=== PATIENT | female | born 1945 | race African-American/Black ===

== ENCOUNTER 2021-05-17 15:41 | Outpatient (REF) | payer MEDICARE, MEDICAID, SELFPAY ==
--- NOTE | ~2021-05-17 | XR_ITS ---
EXAMINATION: XR CHEST XR RIBS, BILATERAL CLINICAL INFORMATION: Pleurodynia. COMPARISON: None TECHNIQUE: PA and lateral views of the chest. 3 views of the bilateral ribs. FINDINGS: The cardiomediastinal silhouette is mildly enlarged. Atherosclerotic calcification in the aortic arch. Some linear atelectasis in the lung bases, no consolidation or pneumothorax. No displaced rib fractures. XR/XR chest 2V IMPRESSION: No acute cardiopulmonary process.
--- NOTE | ~2021-05-17 | XR_ITS ---
EXAMINATION: XR CHEST XR RIBS, BILATERAL CLINICAL INFORMATION: Pleurodynia. COMPARISON: None TECHNIQUE: PA and lateral views of the chest. 3 views of the bilateral ribs. FINDINGS: The cardiomediastinal silhouette is mildly enlarged. Atherosclerotic calcification in the aortic arch. Some linear atelectasis in the lung bases, no consolidation or pneumothorax. No displaced rib fractures. XR/XR ribs LT 2V IMPRESSION: No acute cardiopulmonary process.
--- NOTE | ~2021-05-17 | XR_ITS ---
EXAMINATION: XR CHEST XR RIBS, BILATERAL CLINICAL INFORMATION: Pleurodynia. COMPARISON: None TECHNIQUE: PA and lateral views of the chest. 3 views of the bilateral ribs. FINDINGS: The cardiomediastinal silhouette is mildly enlarged. Atherosclerotic calcification in the aortic arch. Some linear atelectasis in the lung bases, no consolidation or pneumothorax. No displaced rib fractures. XR/XR ribs RT 2V IMPRESSION: No acute cardiopulmonary process.
== END 2021-05-17 15:42 | disposition home or self-care (01) ==
LOC: HO.XRAY 15:41
PROVIDERS: PCP Internal Medicine; Visit Provider Internal Medicine
DX: R07.81 Pleurodynia (principal)
CPT/HCPCS: 71046; 71100

== ENCOUNTER 2021-05-24 23:04 | Emergency (ER) | payer MEDICARE, MEDICAID, SELFPAY ==
--- NOTE | ~2021-05-24 | CT_ITS ---
EXAMINATION: CT ABDOMEN AND PELVIS WITH CONTRAST CLINICAL INFORMATION: Diffuse abdominal pain, nausea/vomiting, history of colon cancer COMPARISON: None TECHNIQUE: Multidetector volumetric images were obtained from the superior aspect of the liver through the pubic symphysis following administration 85 mL of Omnipaque 350 intravenous contrast. Sagittal and coronal reformatted images were obtained on the technologist's workstation. Oral contrast: No This CT examination was performed using dose optimization techniques as appropriate, variously including the following: *Automated exposure control *Adjustment of mA and/or kV according to patient size (this includes techniques or standardized protocols for targeted exams where dose is matched to indication/reason for exam; i.e. extremities or head) *Use of iterative reconstruction technique DLP: 724 mGy-cm FINDINGS: LUNG BASES: The visualized lung bases are unremarkable. LIVER, GALLBLADDER, AND BILIARY TREE: The liver is normal in size, shape, and attenuation. No focal hepatic lesion or biliary ductal dilatation is present. The gallbladder is unremarkable with no evidence of radiopaque gallstones, gallbladder wall thickening, or obvious pericholecystic inflammatory changes. PANCREAS: Unremarkable. SPLEEN: Unremarkable. ADRENAL GLANDS: Unremarkable. KIDNEYS AND URETERS: Bilateral nephrograms are symmetric. No hydronephrosis or obstructing calculus identified. BLADDER: Unremarkable. GASTROINTESTINAL TRACT: No evidence of bowel obstruction. There is sigmoid colon diverticulosis without diverticulitis. There is prominent submucosal fat within some segments of the colon, which can be seen as sequelae of prior inflammation. The appendix is unremarkable. No free fluid or free air is seen. ABDOMINAL WALL: No significant hernia is appreciated. LYMPH NODES: Normal. VASCULAR: There are scattered atherosclerotic calcifications. PELVIC VISCERA: Calcified uterine fibroids are noted. OSSEOUS STRUCTURES: Degenerative changes are present most prominently in the lower lumbar spine. CT/CT abdomen pelvis w con IMPRESSION: No acute findings identified in the abdomen/pelvis. Chronic appearing changes as noted above. Fleischner guidelines were followed.
--- NOTE | ~2021-05-24 | XR_ITS ---
EXAMINATION: XR CHEST CLINICAL INFORMATION: Cough COMPARISON: 05/17/2021 TECHNIQUE: Frontal view of the chest was obtained. FINDINGS: Lung volumes are symmetric. No focal consolidation is seen. No evidence of pneumothorax, pleural effusion, or pulmonary edema. Cardiac size is within normal limits. Calcification is present at the aortic arch. No acute osseous findings are seen. XR/XR chest 1V IMPRESSION: No acute cardiopulmonary findings.
[2021-05-24 23:25] VITALS: BP 131/57; PULSE 87; RESP 18; TEMP 36.8; O2SAT 98; BMI 38.2
[2021-05-25 00:32] LABS: MANUAL DIFF FLAG NO
[2021-05-25 00:38] LABS: Basophils Percent Auto 0.1 % (0-2); Eosinophils Percent Auto 0.6 % (0-4); Hemoglobin 12.9 g/dl (12.0-16.0); Imm Gran Abs Auto 0.02 X10*3/uL (0.00-0.03); Imm Gran Pct Auto 0.3 % (0.0-0.4); Lymphocytes Absolute Auto 1.7 X10*3/uL (1.2-4.9); Lymphocytes Percent Auto 25.2 % (20-40); Mean Corpuscular HGB Conc 33.1 g/dl (31.0-35.0); Mean Corpuscular Hemoglobin 31.9 pg (27.0-33.0); Mean Corpuscular Volume 96.5 fL (80.0-98.0); Monocytes Absolute Auto 0.4 X10*3/uL (0.1-1.2); Monocytes Percent Auto 6.6 % (2-11); Neutrophils Absolute Auto 4.5 x10*3/uL (2.0-8.3); Neutrophils Percent Auto 67.2 % (45-73); Platelet Count 384 X10*3/uL (160-400); Red Blood Count 4.04 X10*6/uL (4.20-5.50); Red Cell Distribution Width 12.3 % (11.0-16.0); White Blood Count 6.7 X10*3/uL (4.8-10.8)
[2021-05-25 00:46] LABS: Prothrombin Time 11.7 SEC (9.9-13.0)
[2021-05-25 00:50] LABS: Appearance Urine HAZY; Color Urine STRAW; Glucose Urine UA NEG (NEG); Leukocyte Esterase Urine 2+ (NEG); Nitrite Urine NEG (NEG); Specific Gravity - Urine <= 1.005 (1.005-1.025); UACC Culture Trigger YES; Urine Blood NEG (NEG); Urine Ketones NEG (NEG); Urine Protein NEG (NEG-TRACE)
[2021-05-25 00:58] LABS: Bacteria Urine 1+ /LPF; Mucus Urine 1+ /LPF; RBC Urine 0-2 /HPF (0); Squamous Epithelial Cell Urine TRACE /LPF
[2021-05-25 01:02] LABS: Lactic Acid 1.2 mmol/L (0.5-2.0)
[2021-05-25 01:06] LABS: Strep A Nucleic Acid Negative (Negative)
[2021-05-25 01:11] LABS: COVID-19 Test Negative (Negative); IDNOW Serial# 9DD0AD1C
[2021-05-25 01:21] LABS: Alanine Aminotransferase 10 U/L (0-31); Albumin Level 4.1 g/dL (3.5-5.0); Alkaline Phosphatase 94 U/L (39-117); Anion Gap 12 (12-20); Aspartate Amino Transferase 13 U/L (5-31); Bilirubin Total 0.5 mg/dL (0.0-1.0); Blood Urea Nitrogen 7 mg/dL (9-16); Calcium 9.7 mg/dL (8.4-10.2); Carbon Dioxide 30 mmol/L (22-29); Chloride 101 mmol/L (96-108); Creatinine Clr Calc Pharmacy 52.6; Estimated Glomerular Filt Rate 59; Glucose Random 106 mg/dL (60-115); Potassium 3.9 mmol/L (3.3-5.1); Sodium 139 mmol/L (135-145); Total Protein 7.6 g/dL (6.5-8.0)
--- NOTE | 2021-05-25 01:26 | ED_ITS ---
HPI - General Adult General Chief complaint: Headache Stated complaint: BATES,SORE THROAT Time Seen by Provider: 05/24/21 23:05 Source: patient and interpreter deaf Mode of arrival: EMS History of Present Illness HPI narrative: 75-year-old female with presentation via EMS for dental pain that extends into the jaw and right side of her face in into the ear patient describes at it crosses her face, patient states that she has had nausea but no vomiting and diarrhea. Patient states she has gotten her COVID-19 vaccine. Related Data Previous Rx's Medication Instructions Recorded amoxicillin 875 mg-potassium 1 tab PO Q12H 5 Days #10 tab 05/25/21 clavulanate 125 mg tablet (Augmentin) Allergies Allergy/AdvReac Type Severity Reaction Status Date / Time No Known Allergies Allergy Unverified 01/06/20 16:38 [No Known Allergies*] aspirin AdvReac Unknown Verified 01/06/19 00:00 Review of Systems Verdana 4l Review of Systems: Verdana 4d Pertinent positives and Verdana 4d negatives as stated in HPI 10 point review of systems is otherwise negative. Verdana 4d PMFSH Past Medical History Source: nursing notes reviewed Social History Social History Advance Directives: No Advance Directives Information Provided: Yes Physical Exam Verdana 4l Vital Signs: Verdana 4d Verdana 4d Vital Signs: Verdana 4d Verdana 4Bd Last Vital Signs Verdana 4d Booth Operator New 4d Booth Operator New 4d Temp 98.3 F 05/24/21 23:25 Booth Operator New 4d Pulse 87 05/24/21 23:25 Booth Operator New 4d Resp 18 05/24/21 23:25 BP 131/57 L 05/24/21 23:25 Pulse Ox 98 05/24/21 23:25 BMI result Body Mass Index 38.2 VITAL SIGNS: Reviewed. GENERAL: Well developed, well nourished, in no acute distress. HEAD: Normocephalic/atraumatic EYES: PERRLA, EOMI OROPHARYNX: no oral lesions noted, posterior pharynx clear NECK: Supple, no adenopathy LUNGS: Normal breath sounds. No adventitious sounds or accessory muscle use. SpO2<98> CARDIOVASCULAR: Regular rate and rhythm without noted murmurs, no JVD or lower extremity edema. ABDOMEN: Obese, soft, mild abdominal tenderness, non-distended with bowel sounds. SKIN: Inspection of the skin reveals no rashes NEUROLOGIC: Alert and oriented x 4. Strength and sensation to light touch were grossly intact x 4. Course Course Course Narrative: 75-year-old female with history and clinical presentation suggestive of possible dental pain, UTI, obstruction given prior history of colon CA. Review of all investigations without acute findings other than evidence to suggest dental infection and a UTI. Patient received initial antibiotics as well as analgesics here in the emergency room and was discharged home in stable condition with remaining course. Medical Decision Making Lab Data Result diagrams: 05/25/21 00:05 05/25/21 00:05 Labs: Lab Results 05/25/21 05/25/21 05/25/21 Range/Units 00:05 00:05 00:05 WBC 6.7 (4.8-10.8) X10*3/uL RBC 4.04 L (4.20-5.50) X10*6/uL Hgb 12.9 (12.0-16.0) g/dl Hct 39.0 (37.0-47.0) % MCV 96.5 (80.0-98.0) fL MCH 31.9 (27.0-33.0) pg MCHC 33.1 (31.0-35.0) g/dl RDW 12.3 (11.0-16.0) % Plt Count 384 (160-400) X10*3/uL MPV 9.0 L (9.4-12.3) fL Immature Gran % (Auto) 0.3 (0.0-0.4) % Neut % (Auto) 67.2 (45-73) % Lymph % (Auto) 25.2 (20-40) % Hancock % (Auto) 6.6 (2-11) % Eos % (Auto) 0.6 (0-4) % Baso % (Auto) 0.1 (0-2) % Lymph # (Auto) 1.7 (1.2-4.9) X10*3/uL Hancock # (Auto) 0.4 (0.1-1.2) X10*3/uL Eos # (Auto) 0.0 (0.0-0.4) X10*3/uL Baso # (Auto) 0.0 (0.0-0.2) X10*3/uL Abs Immat Gran (auto) 0.02 (0.00-0.03) X10*3/uL Absolute Neuts (auto) 4.5 (2.0-8.3) x10*3/uL Absolute Nucleated RBC 0.000 (0.0-0.012) X10*3/uL Nucleated RBC % (auto) 0.0 (0.0-0.2) /100WBC PT (9.9-13.0) SEC INR (0.9-1.1) Sodium (135-145) mmol/L Potassium (3.3-5.1) mmol/L Chloride (96-108) mmol/L Carbon Dioxide (22-29) mmol/L Anion Gap (12-20) BUN (9-16) mg/dL Creatinine (0.5-1.4) mg/dL Estim Creat Clear Calc Estimated GFR Random Glucose (60-115) mg/dL Lactic Acid (0.5-2.0) mmol/L Calcium (8.4-10.2) mg/dL Total Bilirubin (0.0-1.0) mg/dL AST (5-31) U/L ALT (0-31) U/L Alkaline Phosphatase (39-117) U/L Total Protein (6.5-8.0) g/dL Albumin (3.5-5.0) g/dL Urine Color Urine Appearance Urine pH (5.0-8.0) Ur Specific Irving (1.005-1.025) Urine Protein (NEG-TRACE) MG/DL Urine Glucose (UA) (NEG) MG/DL Urine Ketones (NEG) MG/DL Urine Blood (NEG) Urine Nitrite (NEG) Ur Leukocyte Esterase (NEG) Urine RBC (0) /HPF Urine WBC (0-4) /HPF Ur Squamous Epith Cells /LPF Urine Bacteria /LPF Urine Mucus /LPF COVID-19 (FAITH) Negative (Negative) COVID-19 Clin Com See Note S. pyogenes GrpA YUE Negative (Negative) 05/25/21 05/25/21 05/25/21 Range/Units 00:05 00:05 00:05 WBC (4.8-10.8) X10*3/uL RBC (4.20-5.50) X10*6/uL Hgb (12.0-16.0) g/dl Hct (37.0-47.0) % MCV (80.0-98.0) fL MCH (27.0-33.0) pg MCHC (31.0-35.0) g/dl RDW (11.0-16.0) % Plt Count (160-400) X10*3/uL MPV (9.4-12.3) fL Immature Gran % (Auto) (0.0-0.4) % Neut % (Auto) (45-73) % Lymph % (Auto) (20-40) % Hancock % (Auto) (2-11) % Eos % (Auto) (0-4) % Baso % (Auto) (0-2) % Lymph # (Auto) (1.2-4.9) X10*3/uL Hancock # (Auto) (0.1-1.2) X10*3/uL Eos # (Auto) (0.0-0.4) X10*3/uL Baso # (Auto) (0.0-0.2) X10*3/uL Abs Immat Gran (auto) (0.00-0.03) X10*3/uL Absolute Neuts (auto) (2.0-8.3) x10*3/uL Absolute Nucleated RBC (0.0-0.012) X10*3/uL Nucleated RBC % (auto) (0.0-0.2) /100WBC PT 11.7 (9.9-13.0) SEC INR 1.0 (0.9-1.1) Sodium 139 (135-145) mmol/L Potassium 3.9 (3.3-5.1) mmol/L Chloride 101 (96-108) mmol/L Carbon Dioxide 30 H (22-29) mmol/L Anion Gap 12 (12-20) BUN 7 L (9-16) mg/dL Creatinine 0.93 (0.5-1.4) mg/dL Estim Creat Clear Calc 52.6 Estimated GFR 59 Random Glucose 106 (60-115) mg/dL Lactic Acid 1.2 (0.5-2.0) mmol/L Calcium 9.7 (8.4-10.2) mg/dL Total Bilirubin 0.5 (0.0-1.0) mg/dL AST 13 (5-31) U/L ALT 10 (0-31) U/L Alkaline Phosphatase 94 (39-117) U/L Total Protein 7.6 (6.5-8.0) g/dL Albumin 4.1 (3.5-5.0) g/dL Urine Color Urine Appearance Urine pH (5.0-8.0) Ur Specific Irving (1.005-1.025) Urine Protein (NEG-TRACE) MG/DL Urine Glucose (UA) (NEG) MG/DL Urine Ketones (NEG) MG/DL Urine Blood (NEG) Urine Nitrite (NEG) Ur Leukocyte Esterase (NEG) Urine RBC (0) /HPF Urine WBC (0-4) /HPF Ur Squamous Epith Cells /LPF Urine Bacteria /LPF Urine Mucus /LPF COVID-19 (FAITH) (Negative) COVID-19 Clin Com S. pyogenes GrpA YUE (Negative) 05/25/21 Range/Units 00:05 WBC (4.8-10.8) X10*3/uL RBC (4.20-5.50) X10*6/uL Hgb (12.0-16.0) g/dl Hct (37.0-47.0) % MCV (80.0-98.0) fL MCH (27.0-33.0) pg MCHC (31.0-35.0) g/dl RDW (11.0-16.0) % Plt Count (160-400) X10*3/uL MPV (9.4-12.3) fL Immature Gran % (Auto) (0.0-0.4) % Neut % (Auto) (45-73) % Lymph % (Auto) (20-40) % Hancock % (Auto) (2-11) % Eos % (Auto) (0-4) % Baso % (Auto) (0-2) % Lymph # (Auto) (1.2-4.9) X10*3/uL Hancock # (Auto) (0.1-1.2) X10*3/uL Eos # (Auto) (0.0-0.4) X10*3/uL Baso # (Auto) (0.0-0.2) X10*3/uL Abs Immat Gran (auto) (0.00-0.03) X10*3/uL Absolute Neuts (auto) (2.0-8.3) x10*3/uL Absolute Nucleated RBC (0.0-0.012) X10*3/uL Nucleated RBC % (auto) (0.0-0.2) /100WBC PT (9.9-13.0) SEC INR (0.9-1.1) Sodium (135-145) mmol/L Potassium (3.3-5.1) mmol/L Chloride (96-108) mmol/L Carbon Dioxide (22-29) mmol/L Anion Gap (12-20) BUN (9-16) mg/dL Creatinine (0.5-1.4) mg/dL Estim Creat Clear Calc Estimated GFR Random Glucose (60-115) mg/dL Lactic Acid (0.5-2.0) mmol/L Calcium (8.4-10.2) mg/dL Total Bilirubin (0.0-1.0) mg/dL AST (5-31) U/L ALT (0-31) U/L Alkaline Phosphatase (39-117) U/L Total Protein (6.5-8.0) g/dL Albumin (3.5-5.0) g/dL Urine Color STRAW Urine Appearance HAZY Urine pH 6.0 (5.0-8.0) Ur Specific Irving <= 1.005 (1.005-1.025) Urine Protein NEG (NEG-TRACE) MG/DL Urine Glucose (UA) NEG (NEG) MG/DL Urine Ketones NEG (NEG) MG/DL Urine Blood NEG (NEG) Urine Nitrite NEG (NEG) Ur Leukocyte Esterase 2+ H (NEG) Urine RBC 0-2 (0) /HPF Urine WBC 10-14 H (0-4) /HPF Ur Squamous Epith Cells TRACE /LPF Urine Bacteria 1+ /LPF Urine Mucus 1+ /LPF COVID-19 (FAITH) (Negative) COVID-19 Clin Com S. pyogenes GrpA YUE (Negative) Discharge Plan Discharge Clinical Impression: Acute UTI, Dental infection Patient Disposition: Home, Self-Care Instructions: Urinary Tract Infection in Women (DC), Toothache (ED) Additional Instructions: 1. Reanudar todos los medicamentos caseros seg?n lo prescrito. 2. Seguimiento con jacobsen proveedor de atenci?n primaria en los pr?ximos 1-2 d?as. Debe hacer un seguimiento con el dentista llamando al consultorio a primera hora de la ma?max. Regrese a la ella de emergencias si los s?ntomas empeoran. Prescriptions: New amoxicillin-pot clavulanate [Augmentin] 875-125 mg tablet 1 tab PO Q12H 5 Days Qty: 10 0RF Print Language: Lao
[2021-05-25] MEDS: Acetaminophen 325 MG TABLET 975 MG PO (01:34)
[2021-05-25] MEDS: cefTRIAXone sodium 1 GM in 0.9 % Sodium Chloride 50 ML IV (01:34)
[2021-05-25 02:00] VITALS: BP 110/78; PULSE 80; RESP 16; O2SAT 97
[2021-05-25] MEDS: iohexoL 350 MG/ML 100 ML INFUS..BTL 85 ML IV (02:16)
== END 2021-05-25 03:23 | disposition home or self-care (01) ==
PROVIDERS: Emergency Provider Student in an Organized Health Care Education/Training Program
DX: N39.0 Urinary tract infection, site not specified (principal); K04.7 Periapical abscess without sinus; K08.89 Other specified disorders of teeth and supporting structures; Z20.822 Contact with and (suspected) exposure to COVID-19
CPT/HCPCS: 36415; 71045; 74177; 80053; 81001; 83605; 85025; 85610; 87040; 87086; 87088; 87186; 87635; 87651; 96365; 99284; J0696; Q9967

== ENCOUNTER 2021-08-13 14:43 | Outpatient (REF) | payer MEDICARE, MEDICAID, SELFPAY ==
--- NOTE | ~2021-08-13 | CT_ITS ---
EXAMINATION: CT SOFT TISSUE NECK WITH CONTRAST CLINICAL INFORMATION: Dysphagia COMPARISON: None TECHNIQUE: Following intravenous administration of 6 mL of Omnipaque 350 contrast, helical imaging was performed in the axial plane with generation of coronal and sagittal reformatted images. Limited study with motion artifacts. This CT examination was performed using dose optimization techniques as appropriate, variously including the following: *Automated exposure control *Adjustment of mA and/or kV according to patient size (this includes techniques or standardized protocols for targeted exams where dose is matched to indication/reason for exam; i.e. extremities or head) *Use of iterative reconstruction technique DLP: 256 mGy-cm FINDINGS: No contour abnormality or pathologic enhancement is seen within the oral cavity, though there are some limitations in evaluation due to motion artifacts. There is a retropharyngeal course of the common carotid arteries and right internal carotid artery distorting the posterior pharyngeal wall. No abnormal enhancement is evident within the pharyngeal mucosal space. The laryngeal structures appear normal. The thyroid gland is homogeneous. There is a small calcification superficially in the right parotid gland. The parotid and submandibular glands otherwise appear normal. No cervical adenopathy is visible. Mild atherosclerotic wall calcifications present at the carotid bifurcations. The imaged mediastinum is normal. The visualized portions of the lungs are clear. There is a mild rightward curvature of the cervical spine with multilevel facet arthropathy. Scattered dental caries noted. The imaged paranasal sinuses and mastoid air cells are well aerated. The TMJs appear normal. The craniocervical junction is normal. The visualized portions of the brain demonstrate no acute abnormality. CT/CT soft tissue neck w con IMPRESSION: Limited study with motion artifacts. No abnormal soft tissue enhancement. No cervical adenopathy or acute process.
[2021-08-13] MEDS: iohexoL 350 MG/ML 100 ML INFUS..BTL 60 ML IV (16:30)
== END 2021-08-13 14:44 | disposition home or self-care (01) ==
LOC: HO.CT 14:43
PROVIDERS: Visit Provider Internal Medicine
DX: R13.10 Dysphagia, unspecified (principal); R22.1 Localized swelling, mass and lump, neck
CPT/HCPCS: 70491; Q9967

== ENCOUNTER → 2021-09-20 13:06 | Outpatient (BNVA) | payer MEDICARE, MEDICAID, SELFPAY | PROVIDERS: Referring Provider Internal Medicine; Visit Provider Physician Assistant | DX: R13.10 Dysphagia, unspecified (principal); K21.9 Gastro-esophageal reflux disease without esophagitis; K44.9 Diaphragmatic hernia without obstruction or gangrene | CPT/HCPCS: 99202 ==

== ENCOUNTER 2021-09-21 09:37 | Outpatient (REF) | payer MEDICARE, MEDICAID, SELFPAY ==
--- NOTE | ~2021-09-21 | FL_ITS ---
EXAMINATION: FL BARIUM SWALLOW CLINICAL INFORMATION: Heartburn and dysphagia with solids. COMPARISON: None TECHNIQUE: Barium swallow examination was performed using fluoroscopic evaluation in addition to multiple fluoroscopic spot views. The patient was imaged both upright and prone. Fluoroscopy time: 1.8 minutes DAP: 5.621 Gycm2 Images: 73 FINDINGS: The patient swallowed thin and thick barium and a 1/2 inch diameter barium tablet without difficulty. No nasopharyngeal reflux or tracheal aspiration identified. There is some mild cricopharyngeal hypertrophy seen without evidence of Zenker's diverticulum. There is normal esophageal motility. No persistent stricture is identified. There is a small hiatal hernia present. A Schatzki's ring is seen. There is mild gastroesophageal reflux which is transient and clears rapidly to the level just below the criss. FL/FL barium swallow IMPRESSION: Small hiatal hernia with transient gastroesophageal reflux to the criss. Mild cricopharyngeal hypertrophy.
== END 2021-09-21 09:38 | disposition home or self-care (01) ==
LOC: HO.XRAY 09:37
PROVIDERS: PCP Internal Medicine; Visit Provider Internal Medicine
DX: R13.10 Dysphagia, unspecified (principal)
CPT/HCPCS: 74220

== ENCOUNTER → 2021-10-09 13:44 | Outpatient (BNVA) | payer MEDICARE, MEDICAID, SELFPAY | PROVIDERS: PCP Internal Medicine; Visit Provider Physician Assistant | DX: R13.10 Dysphagia, unspecified (principal); K21.9 Gastro-esophageal reflux disease without esophagitis | CPT/HCPCS: 99212 ==

== ENCOUNTER → 2023-05-07 12:45 | Outpatient (BNVA) | payer MEDICARE, MEDICAID, SELFPAY | PROVIDERS: PCP Internal Medicine; Visit Provider Physician Assistant ==

== ENCOUNTER 2023-05-14 15:25 | Outpatient (REF) | payer MEDICARE, MEDICAID, SELFPAY ==
--- NOTE | ~2023-05-14 | XR_ITS ---
EXAMINATION: XR KNEE, RIGHT CLINICAL INFORMATION: Right knee pain for 3 weeks COMPARISON: None available. TECHNIQUE: AP, lateral, and both oblique views of the right knee. FINDINGS: No fracture or malalignment. Mild tricompartmental osteoarthritis with possible small joint effusion. No suspicious bone lesion or soft tissue calcification. XR/XR knee RT 3V IMPRESSION: Mild tricompartmental osteoarthritis with possible small joint effusion.
== END 2023-05-14 15:26 | disposition home or self-care (01) ==
LOC: HO.HHCX 15:25
PROVIDERS: Visit Provider Emergency Medicine
DX: M25.561 Pain in right knee (principal)
CPT/HCPCS: 73562

== ENCOUNTER 2023-06-18 10:32 | Outpatient (REF) | payer OTHER, SELFPAY ==
[2023-06-18 11:39] LABS: Alanine Aminotransferase 16 U/L (0-31); Albumin Level 4.2 g/dL (3.5-5.0); Alkaline Phosphatase 83 U/L (39-117); Anion Gap 10 (12-20); Aspartate Amino Transferase 25 U/L (5-31); Bilirubin Direct 0.2 mg/dL (0.0-0.5); Bilirubin Total 0.5 mg/dL (0.0-1.0); Blood Urea Nitrogen 17 mg/dL (9-16); Calcium 11.1 mg/dL (8.4-10.2); Carbon Dioxide 34 mmol/L (22-29); Chloride 100 mmol/L (96-108); Cholesterol 154 mg/dL (<200); Estimated Glomerular Filt Rate > 60; Glucose Random 146 mg/dL (60-115); HDL Cholesterol 64 mg/dL (>40); LDL Cholesterol Calculated 80 mg/dL (<100); Potassium 3.8 mmol/L (3.3-5.1); Sodium 140 mmol/L (135-145); Triglycerides 54 mg/dL (<150)
[2023-06-18 13:19] LABS: Reflex LDLD? No
== END 2023-06-18 10:33 | disposition home or self-care (01) ==
LOC: HO.HHCL 10:32
PROVIDERS: Visit Provider Internal Medicine
DX: I10 Essential (primary) hypertension (principal); R13.10 Dysphagia, unspecified; K21.9 Gastro-esophageal reflux disease without esophagitis; Z86.010 Personal history of colon polyps
CPT/HCPCS: 36415; 80048; 80061; 80076; 99212

== ENCOUNTER 2023-06-18 11:51 | Outpatient (AMB) | payer OTHER, MEDICAID, SELFPAY ==
--- NOTE | 2023-06-18 12:00 | A.OFFVIS_ITS ---
Intake Vital Signs 06/18/23 12:16 Height 5 ft 2 in Weight 191 lb 4 oz BMI 35.0 BP 120/77 Blood Pressure Location Lt brachial Position Sitting Pulse 65 Intake Visit Reasons: Gastroesophageal reflux disease (GERD) Intake Note: Patient is seen in office for follow up following GERD. Patient c/o: continued acied reflux couple hrs after meals, when eating food gets stuck and has to take hot water for food to go down, denies nausea, vomit, diarrhea, constipation Swat Team Member Required: No Accompanied by: Self / Same As Patient Allergies No Known Allergies [No Known Allergies*] Allergy (Verified 10/09/21 13:49) aspirin Adverse Reaction (Unknown, Verified 06/18/23 12:10) Agitated Medication List - Last Reconciled 06/18/23 by Alysa Ye PA-C atorvastatin 40 mg PO BEDTIME cholecalciferol (vitamin D3) 50 mcg PO DAILY hydrochlorothiazide 25 mg PO DAILY mirtazapine 30 mg PO BEDTIME omeprazole 40 mg PO DAILY ramipril 2.5 mg PO DAILY verapamil ER 300 mg PO BEDTIME HPI HPI Comments History of Present Illness Details A 77 y/o female seen 2021- with dysphagia and acid reflux- after Barium swallow- she was to be scheduled for EGD- as well as ENT for PND She is here with her family member- Jailene- says she was never called for appointment- On 12/04/22 @ 09:10 Shari Lieberman Wrote To Missy Marte attempts made with no response from pt. On 11/07/22 @ 09:57 Shari Lieberman Wrote To Missy Marte lvm for pt to cb to scheduled in mar 2023 kiran for repeat, ADDED TO CONTACT PT SPREAD SHEET. On 09/16/22 @ 00:03 System Wrote To Missy Marte Daemon,Background deleted item. On 08/16/22 @ 14:01 Shari Lieberman Wrote To Missy Marte Added to spread sheet On 08/05/22 @ 12:03 Shari Lieberman Wrote To Missy Marte Shari Lieberman completed item. On 10/09/21 @ 14:49 Lora Andrews Wrote To Trinidad Jenkins Please schedule an EGD. Jackson follow up please. Appetite is good- she drinks warm water when she eats- she does not have many teeth left- she is unable to chew well She does have acid reflux-nothing specific trigger symptoms-currently avoiding any specific food category Barium Swallow- reviewed Colonoscopy 2019- multiple adenomas Bowels are normal No nausea, vomiting, hematemesis, hematochezia fever chills PFSH Family History Unknown No family history of colorectal cancer Social History Household Members: Family Alcohol intake: never Patient Tobacco Use Status: Never used Tobacco Review of Systems Const All systems reviewed & are unremarkable except as noted in HPI and below ENT Reports dysphagia Card Denies chest pain and Denies dyspnea Resp Denies dyspnea GI Denies abdominal pain, Reports dysphagia and Reports heartburn Physical Exam Vital Signs: Last Vital Signs Pulse 65 06/18/23 12:16 BP 120/77 06/18/23 12:16 BMI result Body Mass Index 35.0 Const General: cooperative, comfortable and no acute distress Nutritional Appearance: overweight Orientation/consciousness: patient oriented x3 Limitations: language barrier Eyes Sclerae: sclerae normal Resp Effort & Inspection: normal respiratory effort and able to speak in complete sentences Auscultation: no wheezes and diminished lung sounds Cardio Rate: regular rate Rhythm: regular rhythm Heart sounds: S1 normal heart sound present and S2 normal heart sound present GI Inspection: Yes obesity Palpation (GI): Soft to palpation and nontender Auscultation: normal bowel sounds Skin General skin exam: no rashes or lesions noted Neuro General: patient oriented x3 Extrem General: Yes full ROM Psych Affect: Animated affect present Attitude: cooperative Thought process: Circumstantial thought process present Thought content: Normal thought content present Results Reviewed Results Reviewed: 09/2021- FL/FL barium swallow IMPRESSION: Small hiatal hernia with transient gastroesophageal reflux to the criss. Mild cricopharyngeal hypertrophy. Colonoscopy- 2019- multiple adenomas Assessment & Plan Assessment & Plan (1) Dysphagia: Comment: Pleasant, good spirits, alert Barium study reviewed- likely lacking dentures play a role chew well , eat slowly Code(s): R13.10 - Dysphagia, unspecified Plan: Chew well Eat slowly Follow-up for dental consult as scheduled (2) Acid reflux: Comment: ppi avoid culprits Code(s): K21.9 - Gastro-esophageal reflux disease without esophagitis Plan: ppi avoid culprits (3) History of adenomatous polyp of colon: Comment: multiple adenomas 2018 Code(s): Z86.010 - Personal history of colonic polyps Plan: colonoscopy Plan EGD/ colon PEG Orders: Orders EGD/[place] Combo - GI Use Only 06/18/23 Medications: New peg-electrolyte soln 420 gram Start at 6:00pm the evening before procedure, drink one 8oz glass every 15 minutes until complete 240 mL PO ONCE 1 day PRN 4,000 mL 0RF colon Patient Instructions: Pleasant 77-year-old female personal history of colon polyps, persistent acid reflux -mild dysphagia to solids 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
[2023-06-18 12:16] VITALS: BP 120/77; PULSE 65; BMI 35.0
== END 2023-06-18 13:13 | disposition home or self-care (01) ==
PROVIDERS: PCP Internal Medicine; Visit Provider Physician Assistant
DX: R13.10 Dysphagia, unspecified (principal); K21.9 Gastro-esophageal reflux disease without esophagitis; Z86.010 Personal history of colon polyps
CPT/HCPCS: 99214

== ENCOUNTER 2023-09-30 08:05 | Day surgery (SDC) | payer OTHER, SELFPAY ==
--- NOTE | 2023-09-26 13:19 | P.CONAN_ITS ---
Documented by User: Kelsey Contreras NP 09/26/23 13:20 HPI - Anesthesia Eval Consult details Narrative: 77yo F for Upper Endoscopy and Colonoscopy PMF Active Problems Active Problems: All Active Problems History of adenomatous polyp of colon (Acute) Acid reflux (Acute) Vitamin D deficiency (Acute) HTN (hypertension) (Acute) Dysphagia (Acute) Past Medical History Medical History Acid reflux HTN (hypertension) Family History Family History Unknown No family history of colorectal cancer Social History Social History Household Members: Family Alcohol intake: never Patient Tobacco Use Status: Never used Tobacco Use of substances other than those prescribed or required for medical reasons: No Are you DNR?: No Advance Directives: No Advance Directives Information Provided: Yes Meds Allergies Allergy/AdvReac Type Severity Reaction Status Date / Time No Known Allergies Allergy Verified 10/09/21 13:49 [No Known Allergies*] aspirin AdvReac Unknown Agitated Verified 06/18/23 12:10 Home Medications ?Medication ?Instructions ?Recorded ?Confirmed ?Last Taken ?Type atorvastatin 40 mg tablet 40 mg PO BEDTIME 10/09/21 09/30/23 Unknown History cholecalciferol (vitamin D3) 50 50 mcg PO DAILY 10/09/21 Unknown History mcg (2,000 unit) capsule hydrochlorothiazide 25 mg tablet 25 mg PO DAILY 10/09/21 09/30/23 Unknown History ramipril 2.5 mg capsule 2.5 mg PO DAILY 10/09/21 09/30/23 Unknown History verapamil 300 mg capsule 24hr 300 mg PO BEDTIME 10/09/21 09/30/[address],ext.release mirtazapine 30 mg tablet 30 mg PO BEDTIME 06/18/23 09/30/23 Unknown History Assessment and Plan Assessment Anesthesia Assessment: Chart Reviewed Documented by User: Joe Sharma MD 09/30/23 10:13 HPI - Anesthesia Eval Consult details Narrative: 77yo F for Upper Endoscopy and Colonoscopy Endorses right-sided chest pain worse with activity and improves with rest. She had 1 visit to [facility] ER last year for similar complaints; was deemed noncardiac. Activities limited in general secondary to knee osteoarthritis. [facility] Past Medical History Medical History Acid reflux HTN (hypertension) Family History Family History Unknown No family history of colorectal cancer Family history of problems with anesthesia: No Surgical History History of Problems with Anesthesia: No Social History Social History Household Members: Family Alcohol intake: never Patient Tobacco Use Status: Never used Tobacco Use of substances other than those prescribed or required for medical reasons: No Are you DNR?: No Advance Directives: No Advance Directives Information Provided: Yes Meds Allergies Allergy/AdvReac Type Severity Reaction Status Date / Time No Known Allergies Allergy Verified 10/09/21 13:49 [No Known Allergies*] aspirin AdvReac Unknown Agitated Verified 06/18/23 12:10 Home Medications ?Medication ?Instructions ?Recorded ?Confirmed ?Last Taken ?Type atorvastatin 40 mg tablet 40 mg PO BEDTIME 10/09/21 09/30/23 Unknown History cholecalciferol (vitamin D3) 50 50 mcg PO DAILY 10/09/21 Unknown History mcg (2,000 unit) capsule hydrochlorothiazide 25 mg tablet 25 mg PO DAILY 10/09/21 09/30/23 Unknown History ramipril 2.5 mg capsule 2.5 mg PO DAILY 10/09/21 09/30/23 Unknown History verapamil 300 mg capsule 24hr 300 mg PO BEDTIME 10/09/21 09/30/[address],ext.release mirtazapine 30 mg tablet 30 mg PO BEDTIME 06/18/23 09/30/23 Unknown History Exam Airway Mallampati Class: III TM Dist: >3cm Denture: Upper and Lower Assessment and Plan Assessment Anesthesia Assessment: Anesthesia Plan Discussed Final Anesthetic Review Family History of Problems with Anesthesia: No History of Problems with Anesthesia: No NPO: Yes ASA Class: III Final Preanesthetic Review: No Changes in Pt Med Stat, Meds/Allgs Chart Reviewed, Consent Obtained/Reviewed and Anes Risks/Benef Reviewed Patient Risk: Intermediate Procedure Risk: Low Anesthetic Plan Anesthetic Plan: MAC: Disposition: Standard PACU
[2023-09-26 15:30] VITALS: BMI 35.0
[2023-09-30 09:03] VITALS: BMI 34.0
[2023-09-30 09:13] VITALS: BP 170/64; PULSE 67; RESP 18; TEMP 36.1; O2SAT 98
--- NOTE | 2023-09-30 09:19 | MHC.SHP ---
Pre-Procedural Eval Section A - 24 Hr Update-Section A only Date of Service: 09/30/23 Section B - Complete if H&P > 30 days Chief Complaint: dysphagia,gerd,hx colonic polyps Present Medications: see Short Stay Collaborative assessment Allergies: Allergies Allergy/AdvReac Type Severity Reaction Status Date / Time No Known Allergies Allergy Verified 10/09/21 13:49 [No Known Allergies*] aspirin AdvReac Unknown Agitated Verified 06/18/23 12:10 Review of Systems Review of Systems Comment: Ten point ROS negative Exam Exam Comment: Gen appear: No acute distress HEENT: no icterus Chest: No overt resp distress Abd: soft, nontender, nondistended Psych: Stable affect, answering questions appropriately Neuro: A/Ox3 noted to move all extremities spontaneously Ext: no peripheral edema Plan Diagnosis/Plan: Unchanged I have reviewed the history and physical and performed a pertinent physical examination on my patient. No changes have occurred unless specified. Time Spent With Patient Time: Total time managing care of this patient today ____ minutes.
[2023-09-30] MEDS: Sodium Phosphate,Mono-Dibasic 133 ML ENEMA PR (09:53)
[2023-09-30] MEDS: Lactated Ringers 1,000 ML 100 ML IVCONT (10:28)
--- NOTE | 2023-09-30 11:37 | P.OPN-COLO_ITS ---
Colonoscopy Operative Note Operative Note Date of Service: 09/30/23 Narrative: Procedure: Upper endoscopy and colonoscopy Indication: Dysphagia, hx of polyps, fam hx of CRC Endoscopist: Susanna Guan MD Anesthesia Provider: Dr Joe Sharma Anesthesia type: MAC Instrument: GIF-H190 and PCF-[id number] EGD Procedure:?? The procedure, indications, preparation and potential complications were reviewed with the patient, who indicated understanding and gave written informed consent to proceed. mechanical press operator assisted with the encounter. Physical exam was performed. The endoscope was introduced through the mouth, and advanced to the 2nd part of the duodenum. The mucosa was carefully examined on slow withdrawal of the endos cope. The patient tolerated the procedure well. There were no immediate complications.? EGD Findings:? * Esophagus:? Normal esophageal mucosa was noted in the entire esophagus. Nonobstructing Schatzki's ring was seen just above the GE junction. Z-line was at 42 cm. There was a large hiatal hernia with the diaphragmatic pinch at 48 cm. * Stomach:? Small Juventino erosions were noted were noted in the hiatal hernia on retroflexion in the cardia. Antral mucosa was erythematous and edematous with villous appearance. Cold forceps biopsies were taken from the antrum, as well as from remaining stomach separately. A few scattered gastric polyps were noted in the fundus. * Duodenum:? Mild erythema of the duodenal bulb. Remaining mucosa was normal to the extent of visualization. Additional interventions: A soft tip Savary wire was passed to the biopsy channel of the gastroscope and advanced to the antrum. The gastroscope was then backed out. A Savary Grant bougie was advanced over the guidewire. The esophagus was incrementally dilated from 18-20 mm. A small superficial tear was noted the cricopharyngeus, confirming successful dilation. Colonoscopy Procedure:? The patient was then turned for the colonoscopy. A digital rectal exam was performed which was abnormal for external hemorrhoids.? A distal attachment cap was affixed to the tip of the scope and the colonoscope was then inserted through the anus and advanced through the colon and advanced to the cecum at 85 cm.? Appendiceal orifice and ileocecal valve were identified. Mucosa was carefully examined under high definition white light as the instrument was slowly withdrawn in a retrograde panoramic fashion. Retroflexion was performed in rectum. The procedure was somewhat difficult and required lift and pressure to intubate the cecum. The quality of the prep was BBPS: 2+3+2 = adequate Withdrawal time 28 minutes Limitations: No limitations Findings: Mucosa: Normal colon mucosa. Protruding lesions: * One sessile polyp of size 5 mm was noted in the cecum. Cold snare polypectomy was performed. The polyp was completely removed and retrieved. * Three sessile polyps of size 3-6 mm were noted in the transverse colon. Cold snare polypectomy was performed. The polyps were completely removed and retrieved. * One sessile polyp of size 7 mm was noted in the descending colon. Cold snare polypectomy was performed. The polyp was completely removed and retrieved. * Large 2 cm pedunculated polyp was noted in the sigmoid colon. 2 cc of epinephrine were injected in the stalk. Hot snare polypectomy was performed. The polyp was completely removed and retrieved. A [place] [employer] resolution 360 clip was placed at the site of polypectomy to prevent post polypectomy bleeding. * Large internal hemorrhoids without stigmata of recent bleeding. Excluded lesions: * Moderate diverticulosis of sigmoid colon Impression: 1. UES stenosis 2. Schatzki's ring 3. Hiatal hernia 4. Juventino erosions 5. Gastric polyps 6. Antral gastritis 7. Bulbar duodenitis 8. Normal colon mucosa 9. Total 6 polyps removed today 10. Diverticulosis 11. Internal and external hemorrhoids Recommendations:?? * Follow-up path results * Switch to esomeprazole 20 BID * Repeat colonoscopy based on the results, likely in 3 years
[2023-09-30 11:45] VITALS: BP 190/64; PULSE 103; RESP 12; TEMP 37.3; O2SAT 98
[2023-09-30 12:06] VITALS: BP 170/74; PULSE 93; RESP 17; TEMP 36.3; O2SAT 99
== END 2023-09-30 12:41 | disposition home or self-care (01) ==
PROVIDERS: PCP Internal Medicine; Visit Provider Internal Medicine
PROC: (CPT 45385; principal; 2023-09-30 10:00)
DX: Z12.11 Encounter for screening for malignant neoplasm of colon (principal); D12.0 Benign neoplasm of cecum; D12.3 Benign neoplasm of transverse colon; D12.4 Benign neoplasm of descending colon; D12.5 Benign neoplasm of sigmoid colon; K57.30 Diverticulosis of large intestine without perforation or abscess without bleeding; K64.8 Other hemorrhoids; K64.4 Residual hemorrhoidal skin tags; Z86.010 Personal history of colon polyps; K22.2 Esophageal obstruction; K31.7 Polyp of stomach and duodenum; K29.70 Gastritis, unspecified, without bleeding; K25.9 Gastric ulcer, unspecified as acute or chronic, without hemorrhage or perforation; K29.80 Duodenitis without bleeding; K44.9 Diaphragmatic hernia without obstruction or gangrene; K21.9 Gastro-esophageal reflux disease without esophagitis; Z79.899 Other long term (current) drug therapy
CPT/HCPCS: 45385; 45381; 43248; 43239; 88305; 88313; 88342; C1769; J0171; J2704

== ENCOUNTER → 2023-09-30 08:05 | Outpatient (BNV) | payer OTHER, SELFPAY | PROVIDERS: PCP Internal Medicine; Visit Provider Internal Medicine | DX: Z12.11 Encounter for screening for malignant neoplasm of colon (principal); Z86.010 Personal history of colon polyps; D12.3 Benign neoplasm of transverse colon; D12.5 Benign neoplasm of sigmoid colon; K22.2 Esophageal obstruction; K25.4 Chronic or unspecified gastric ulcer with hemorrhage; K31.7 Polyp of stomach and duodenum | CPT/HCPCS: 43239; 43248; 45381; 45385 ==

== ENCOUNTER 2023-11-07 14:05 | Outpatient (REF) | payer OTHER, SELFPAY ==
[2023-11-07 16:06] LABS: MANUAL DIFF FLAG NO
[2023-11-07 16:15] LABS: Basophils Percent Auto 0.3 % (0-2); Eosinophils Absolute Auto 0.1 X10*3/uL (0.0-0.4); Eosinophils Percent Auto 0.8 % (0-4); Hematocrit 37.5 % (37.0-47.0); Hemoglobin 12.5 g/dl (12.0-16.0); Imm Gran Abs Auto 0.03 X10*3/uL (0.00-0.03); Imm Gran Pct Auto 0.4 % (0.0-0.4); Lymphocytes Absolute Auto 1.5 X10*3/uL (1.2-4.9); Lymphocytes Percent Auto 19.4 % (20-40); Mean Corpuscular HGB Conc 33.3 g/dl (31.0-35.0); Mean Corpuscular Hemoglobin 31.6 pg (27.0-33.0); Mean Corpuscular Volume 94.9 fL (80.0-98.0); Mean Platelet Volume 10.8 fL (9.4-12.3); Monocytes Absolute Auto 0.6 X10*3/uL (0.1-1.2); Monocytes Percent Auto 7.8 % (2-11); Neutrophils Absolute Auto 5.6 x10*3/uL (2.0-8.3); Neutrophils Percent Auto 71.3 % (45-73); Platelet Count 311 X10*3/uL (160-400); Red Blood Count 3.95 X10*6/uL (4.20-5.50); Red Cell Distribution Width 11.9 % (11.0-16.0); White Blood Count 7.8 X10*3/uL (4.8-10.8)
[2023-11-08 01:29] LABS: Anion Gap 11 (12-20); Blood Urea Nitrogen 20 mg/dL (9-16); Calcium 10.1 mg/dL (8.4-10.2); Carbon Dioxide 28 mmol/L (22-29); Chloride 103 mmol/L (96-108); Estimated Glomerular Filt Rate 55; Glucose Random 123 mg/dL (60-115); Sodium 138 mmol/L (135-145)
[2023-11-08 01:55] LABS: Vitamin D 25-OH Total 23.7 ng/mL (>30)
[2023-11-08 11:27] LABS: Parathyroid Hormone Intact 90.4 pg/mL (8.7-77.1)
[2023-11-08 12:33] LABS: Calcium, Ionized 5.4 mg/dL (4.7-5.5)
[2023-11-10 22:28] LABS: Prot Elec - Albumin 4.2 g/dL (3.8-4.8); Prot Elec - Alpha1 0.3 g/dL (0.2-0.3); Prot Elec - Alpha2 0.8 g/dL (0.5-0.9); Prot Elec - Beta 1 0.5 g/dL (0.4-0.6); Prot Elec - Beta 2 0.5 g/dL (0.2-0.5); Prot Elec - Gamma 1.5 g/dL (0.8-1.7); Prot Elec - Total Protein 7.6 g/dL (6.1-8.1)
== END 2023-11-07 14:06 | disposition home or self-care (01) ==
LOC: HO.HHCL 14:05
PROVIDERS: Visit Provider Internal Medicine
DX: E83.52 Hypercalcemia (principal)
CPT/HCPCS: 36415; 80048; 82306; 82330; 83970; 84165; 84443; 85025

== ENCOUNTER 2024-01-19 13:58 | Outpatient (REF) | payer OTHER, SELFPAY ==
[2024-01-28 17:33] LABS: Parathyroid Hormone Related Pr 6 pg/mL (11-20)
== END 2024-01-19 13:59 | disposition home or self-care (01) ==
LOC: HO.LAB 13:58
PROVIDERS: PCP Internal Medicine; Visit Provider Internal Medicine
DX: E83.52 Hypercalcemia (principal)
CPT/HCPCS: 36415; 83519

== ENCOUNTER 2024-01-22 15:03 | Outpatient (REF) | payer OTHER, SELFPAY ==
[2024-01-27 08:23] LABS: Creatinine, 24Hr Urine 0.35 g/24 h (0.50-2.15); PEU-PROT/CRE Ratio mg/mg NOTE (<0.150); PEU24-Albumin Urine 0 %; PEU24-Alpha 1 Globulin 0 %; PEU24-Alpha 2 Globulin 0 %; PEU24-Beta Globulin 0 %; PEU24-Gamma Globulin 0 %; Total Protein 24Hr Urine NOTE mg/24 h (<150); Total Protein/Creat Ratio 24h NOTE mg/g creat (<150)
== END 2024-01-22 15:04 | disposition home or self-care (01) ==
LOC: HO.HHCLNP 15:03
PROVIDERS: Visit Provider Internal Medicine
DX: E83.52 Hypercalcemia (principal)
CPT/HCPCS: 82570; 84156; 84166

== ENCOUNTER 2024-01-22 15:13 | Outpatient (REF) | payer OTHER, SELFPAY ==
--- NOTE | ~2024-01-22 | XR_ITS ---
EXAMINATION: XR KNEE, LEFT CLINICAL INFORMATION: Pain of 4 years' duration, without injury. COMPARISON: None available. TECHNIQUE: AP, tunnel and lateral views of the left knee are submitted. FINDINGS: Bony alignment and mineralization are normal. The lateral and medial joint space compartments are well-maintained. There is moderate narrowing of patellofemoral compartment. There is peripheral osteophyte formation of the medial and patellofemoral compartments. No fracture, dislocation or joint effusion is seen. There is no foreign body. XR/XR knee LT 3V IMPRESSION: 1. No fracture, dislocation or joint effusion is seen. 2. There is moderate osteoarthritic change of the left patellofemoral compartment, and mild osteoarthritic change is seen of the medial joint space compartment. Electronically signed by: Cayden Castañeda MD 01/23/2024 08:53 AM EDT
[2024-01-22 16:24] LABS: Estimated Average Glucose 143 mg/dL; Hemoglobin A1C 158.3425 umol/L; Hemoglobin A1c % 6.6 % (<6.0); Total Hemoglobin (HGBA1C) 3220.8198 umol/L
[2024-01-22 16:32] LABS: Glucose Random 108 mg/dL (60-115)
[2024-01-22 16:47] LABS: Vitamin D 25-OH Total 29.3 ng/mL (>30)
== END 2024-01-22 15:14 | disposition home or self-care (01) ==
LOC: HO.HHCL 15:13
PROVIDERS: Visit Provider Internal Medicine
DX: E55.9 Vitamin D deficiency, unspecified (principal); R73.01 Impaired fasting glucose; E83.52 Hypercalcemia; M25.562 Pain in left knee
CPT/HCPCS: 36415; 73562; 82306; 82947; 83036

== ENCOUNTER 2024-12-02 15:23 | Outpatient (REF) | payer OTHER, SELFPAY ==
--- OUTSIDE RECORDS SUMMARY | 2024-12-02 15:48 | XMS_ITS | Clinical Summary ---
Author Organization [facility] Address [address] [place] [address] Care Team Providers Care Pallet Stone Positioner Name Role Phone Unavailable Primary Care Provider Unavailabl e Social History Tobacco Use Types Packs/Day Years Used Date Smoking Tobacco: Never Assessed Comments Unknown Sex and Gender Information Value Date Recorded Sex Assigned at Not on file Legal Sex Female 2:14 PM EST Gender Identity Not on file Sexual Orientation Not on file Plan of Treatment Health Maintenance Due Date Last Done Comments DTaP,Tdap,and Td Vaccines (1 - Tdap) 1965 Pneumococcal Vaccine: 50+ Ye ars (1 of 1 - PCV) 1996 Zoster Vaccines (1 of 2) 1996 RSV Immunization Adult Patie nts (1 - 1-dose 75+ series) 2021 Falls Risk Assessment 03/20/2022 Hepatitis C Screening 03/20/2022 Osteoporosis Screening (Bone Density Screening) 03/20/2022 Social Influencers of Health Screening 03/20/2022 COVID-19 Vaccine ( - 2023-2 5 season) 2023 Depression Screening 04/21/2024 Influenza Vaccine (#1) 2024 HIB Vaccines Aged Out No longer eligi ble based on patient's age to complete this topic HPV Vaccines Aged Out No longer eligi ble based on patient's age to complete this topic Hepatitis A Vaccines Aged Out No long er eligible based on patient's age to complete this topic Hepatitis B Vaccines Aged Out No long er eligible based on patient's age to complete this topic IPV Vaccines Aged Out No longer eligi ble based on patient's age to complete this topic MMR Vaccines Aged Out No longer eligi ble based on patient's age to complete this topic Meningococcal ACWY Vaccine Aged Out N o longer eligible based on patient's age to complete this topic Meningococcal B Vaccine Aged Out No l onger eligible based on patient's age to complete this topic RSV Immunization Patients Un amos 20 months Aged Out No longer eligible b ased on patient's age to complete this topic Varicella Vaccines Aged Out No longer eligible based on patient's age to complete this topic
--- OUTSIDE RECORDS SUMMARY | 2024-12-02 15:48 | XMS_ITS | Encounter Summary ---
Author Organization [employer] Address [address] [place] [address] Care Team Providers Care Can Vacuum Tester Name Role Phone Sam Mckeon MD Primary Care Provide r Encounter Details Date Type Department Care Team ([facility] st Contact Info) Description 11/18/[address] [facility] [address] [place] [address] Brielle Feliciano LPN Social History Tobacco Use Types Packs/Day Years Used Date Smoking Tobacco: Never Assessed Comments Unknown Sex and Gender Information Value Date Recorded Sex Assigned at Female 02/18/2022 10:14 AM EDT Legal Sex Female 10:14 AM EDT Gender Identity Female 02/18/2022 10:14 AM EDT Sexual Orientation Straight 02/18/2022 10 :14 AM EDT documented as of this encounter Plan of Treatment Not on file documented as of this encounter Procedures Procedure Name Priority Date/Time Associated Diagnosis Comments HEMATOXYLIN AND EOSIN STAIN Routine 09/30/2023 10:42 AM EDT documented in this encounter Results * Hematoxylin and Eosin Stain (09/30/2023 10:42 AM EDT) 09/30/2023 10:4 2 AM EDT 09/30/2023 12:08 PM EDT [facility] - 10/01/2023 6:06 PM EDT ----- ------- Name: Jailene Cobos Age/Sex: 77/F : 1945 [facility]#: [id number] Unit#: [id number] Attend Dr: Susanna Guan MD Re09/30/23 Status: [facility] Location: [facility] Disch: ----- ------- SPEC : [id number] RECD: 09/30/23-1208 STATUS: ANABELLE PADILLA NUM: [id number] BUCKY: 09/30/23-1042 [facility] DR: Susanna Guan MD ENTERED: 09/30/23-1237 SP TYPE: Surgical OTHR DR: Sam Gomez MD ORDERED: HE Stain/21, Gross Micro L4/7, IHC/2, Special st. 2/3, H. pylori/2, AB/PAS/3 Diagnosis A. Duodenum, biopsy: Chronic inactive duodenitis. B. Stomach, antrum, biopsy: - Antral-type and oxyntic mucosa with moderate chronic active inflammation and focal intestinal metaplasia; negative for dysplasia. - Positive for H pylori. C. Stomach, random, biopsy: Oxyntic mucosa with mild chronic inactive inflammation; no Helicobacter organisms seen. D. Cecum, polypectomy: Fragments of tubular adenoma; negative for high-grade dysplasia or carcinoma. E. Colon, transverse, polypectomies: Tubular adenomata; negative for high-grade dysplasia or carcinoma. F. Colon, descending, polypectomy: Tubular adenoma; negative for high-grade dysplasia or carcinoma. G. Colon, sigmoid, polypectomy: Tubular adenoma; negative for high-grade dysplasia or carcinoma. Clinical History Pre-Op Dx: Dysphagia, hx of polyps, family hx of colon cancer Post-Op Dx: Gastric polyps, hiatal hernia, gastritis, duodenitis, Schatzki's ring, hemorrhoids, ascending colon lipoma, polyps, diverticulosis Microscopic Description A-G. Microscopic sections examined. Intestinal metaplasia is seen (B), foveolar metaplasia is present (A) and no metaplastic changes are seen (C), supported by AB/PAS stains; Helicobacter organisms are seen in B but not part C, supported by H. pylori immunostain. Material Received A. Duodenum B. Antrum C. Random gastric D. Cecal polyp E. Transverse colon polyps F. Descending colon polyp CONTINUED ON NEXT PAGE ----- ------- Name: Jailene Cobos Age/Sex: 77/F : 1945 Unit#: [id number] Attend Dr: Susanna Guan MD Re09/30/23 Status: [facility] Location: [facility] Disch: ----- ------- SPEC : [id number] RECD: 09/30/23-1208 STATUS: ANABELLE PADILLA NUM: [id number] BUCKY: 09/30/23-104 [facility] DR: Susanna Guan MD ENTERED: 09/30/23-1238 SP TYPE: Surgical OTHR DR: Sam Gomez MD ORDERED: HE Stain/21, Gross Micro L4/7, IHC/2, Special st. 2/3, H. pylori/2, AB/PAS/3 Material Received (Continued) G. Sigmoid colon polyp Gross Description Received in seven parts. Part A: Received in formalin labeled duodenum are 4 almeida-pink irregular tissue fragments ranging from 0.15-0.2 cm, submitted in toto in a cassette labeled A. Part B: Received in formalin labeled antrum are 4 almeida-pink irregular and rectangular tissue fragments ranging from 0.2-0.35 cm, submitted in toto in a cassette labeled B. Part C: Received in formalin labeled random gastric are 4 almeida and almeida-pink irregular and rectangular tissue fragments ranging from 0.2-0.4 cm, submitted in toto in a cassette labeled C. Part D: Received in formalin labeled cecal polyp are 2 almeida-pink papular tissue fragments measuring 0.35 and 0.5 cm, submitted in toto in a cassette labeled D. Part E: Received in formalin labeled transverse colon polyp along with copious debris are several minute to 0.35 cm almeida and almeida-pink irregular and papular tissue fragments aggregating 0.9 x 0.8 x 0.2 cm, submitted in toto in a cassette labeled E. Part F: Received in formalin labeled descending colon along with scant mucus and debris are 2 almeida rectangular and papular tissue fragments measuring 0.35 and 0.4 cm, submitted in toto in a cassette labeled F. Part G: Received in formalin labeled sigmoid colon polyp is a 1.2 x 1.1 x 0.6 cm velvety, lobular, congested and hemorrhagic red-maroon polypoid portion of tissue. The resected base is inked and the specimen is sectioned and entirely submitted in a cassette labeled G. CEDS Special studies ordered and performed: Immunostain for H. pylori on B and C; AB/PAS stains on A-C Copies To: Sam Gomez MD [address] [place] [id number] CONTINUED ON NEXT PAGE ----- ------- Name: Jailene Cobos Age/Sex: 77/F : 1945 Unit#: [id number] Attend Dr: Susanna Guan MD Re09/30/23 Status: [facility] Location: [facility] Disch: ----- ------- SPEC : [id number] RECD: 09/30/23-120 STATUS: ANABELLE PADILLA NUM: [id number] BUCKY: 09/30/23-1042 [facility] DR: Susanna Guan MD ENTERED: 09/30/23-1237 SP TYPE: Surgical OTHR DR: Sam Gomez MD ORDERED: HE Stain/, Gross Micro L4/7, IHC/2, Special st. 2/3, H. pylori/2, AB/PAS/3 Copies To: (Continued) Susanna Guan MD [address] [place] [address], [address] [place] [address] [email or web address] ----- ------- Signed (signature on file) Gerardo Tanner MD 10/01/23 1806 ----- ------- END OF REPORT us Generic External Data Provider LAB BLOOD ORDERAB LES Final Result [facility] [address] [place] [phone] [phone] documented in this encounter Visit Diagnoses Not on filedocumented in this encounter Care Teams Can Vacuum Tester Relationship Specialty Start Date End Date Sam Mckeon MD [address] [place] [phone] PCP - General Internal Medicine 11/22/20 documented as of this encounter
--- OUTSIDE RECORDS SUMMARY | 2024-12-02 15:48 | XMS_ITS | Patient Health Record ---
Author Organization [facility] Address [address] [place] [address] Care Team Providers Care Timber Watchman Name Role Phone Arturo Abrams Unavailable [phone] Reason For Referral No Information Plan Of Treatment No Information
[2024-12-05 19:04] LABS: TS Negative Control Passed; TS Panel A 2; TS Panel B 0; TS Positive Control Passed; TSpotTB Negative (Negative)
== END 2024-12-02 15:24 | disposition home or self-care (01) ==
LOC: HO.HHCL 15:23
PROVIDERS: PCP Internal Medicine; Visit Provider Internal Medicine
DX: Z11.1 Encounter for screening for respiratory tuberculosis (principal)
CPT/HCPCS: 36415; 86481